=== PATIENT | male | born 1990 | race African-American/Black ===

== ENCOUNTER 2020-07-19 10:55 | Emergency (ER) | payer OTHER, SELFPAY ==
--- NOTE | 2020-07-19 10:58 | ED.GENADULT ---
HPI - General Adult General Chief complaint: Upper Respiratory Infection Stated complaint: sore throat Time Seen by Provider: 07/19/20 10:56 Source: patient Mode of arrival: ambulatory Limitations: no limitations History of Present Illness HPI narrative: 29-year-old male patient presents to the [facility] with complaints of a sore throat for the past week. Patient states he thinks it might be strep throat. Patient states he has had strep throat when he was younger but nothing in the last couple of years. Patient states he has been taking some ibuprofen for his symptoms. Denies any fevers, body aches or chills. Denies any ear pain, runny nose, stuffy nose, coughing, chest pain or shortness of breath. Related Data Allergies Allergy/AdvReac Type Severity Reaction Status Date / Time NKDA Allergy Mild Uncoded 12/04/09 12:36 Review of Systems Review of Systems: Narrative: CONSTITUTIONAL: Denies fever, chills, or sweats. EYES: Denies visual changes, redness, or discharge. ENT: Denies rhinorrhea, congestion, positive sore throat, denies otalgia. CARDIOVASCULAR: Denies chest pain, palpitations, or edema. RESPIRATORY: Denies cough or dyspnea. GASTROINTESTINAL: Denies abdominal pain, nausea, vomiting, or diarrhea. GENITOURINARY: Denies dysuria or hematuria. SKIN: Denies rash or itching. MUSCULOSKELETAL: Denies back pain, joint pain, or myalgia. NEUROLOGIC: Denies headache, numbness, or weakness. PSYCHIATRIC: Denies anxiety or depression. PMFSH Comments At the time of my signature I agree with nursing past medical history, surgical, social, and family history. There is no relevant family history pertinent to the presenting complaint. Exam Narrative: Exam Narrative: GENERAL: Well-appearing, well-nourished, and in no acute distress. HEAD: Normocephalic, atraumatic. EYES: PERRLA and EOMI. ENT: Nares clear, no rhinorrhea or epistaxis. Mucous membranes moist. Posterior pharynx with slight erythema. No tonsillar [place], no exudates or lesions present. Bilateral TMs are clear no erythema or foreign bodies to the canal. NECK: Supple. No lymphadenopathy CHEST: Clear to auscultation. No respiratory distress. HEART: Regular rate and rhythm. No murmur heard. Normal peripheral pulses. ABDOMEN: Soft, nontender, nondistended, normal active bowel sounds. EXTREMITIES: Normal range of motion. No edema. SKIN: Warm, dry, no rash. NEURO: No focal deficits. Alert and oriented x3. Course Reevaluation(s) Reevaluation #1: Reevaluated patient after strep test had resulted. Discussed with him that we will send it off to the lab and if it does come back positive in the next day or 2 we will call him and place him on antibiotics at that time. Discussed with him most likely this is viral and would recommend him continuing to take Tylenol, ibuprofen, warm salt water gargles and may want to try an [id number] antihistamine such as Zyrtec, Claritin or Ashly. Discussed with patient I would highly recommend using a humidifier in his room at night to help keep the area moist. Discussed with patient that if he continues to have worsening symptoms such as fevers, body aches, chills, cough or any other concerning symptoms then he would need to follow up with his primary doctor. Offered to send patient for Covid testing however he has refused at this time. Discussed with him that I think that the likelihood of him having Covid with only a sore throat as his symptom is very low. Patient verbalized understanding of this denies any other questions or concerns at this time. Date: 07/19/20 Time: 11:15 Vital Signs Vital signs: Vital Signs Temperature 36.2 C L 07/19/20 11:02 Pulse Rate 61 07/19/20 11:02 Respiratory Rate 12 07/19/20 11:02 Blood Pressure 149/95 H 07/19/20 11:02 Pulse Oximetry 99 07/19/20 11:02 Temperature 36.2 C L 07/19/20 11:02 Pulse Rate 61 07/19/20 11:02 Respiratory Rate 12 07/19/20 11:02 Blood Pressure 149/95 H
[2020-07-19 11:02] VITALS: BP 149/95; PULSE 61; RESP 12; TEMP 36.2; O2SAT 99
== END 2020-07-19 11:30 | disposition home or self-care (01) ==
PROVIDERS: Emergency Provider Nurse Practitioner Family
DX: J02.9 Acute pharyngitis, unspecified (principal)
CPT/HCPCS: 87081; 87880; 99213; G0463